=== PATIENT | male | born 1955 | race Caucasian/White ===

== ENCOUNTER 2023-08-03 12:57 | Emergency (ER) | payer MEDICARE, OTHER | END 2023-08-03 13:33 | disposition home or self-care (01) | LOC: ERS 12:57 | DX: I10 Essential (primary) hypertension (principal); E03.9 Hypothyroidism, unspecified; Z79.899 Other long term (current) drug therapy; Z87.891 Personal history of nicotine dependence | CPT/HCPCS: 99283 ==

== ENCOUNTER 2024-07-01 14:44 | Emergency (ER) | payer MEDICARE, OTHER ==
[2024-07-01 16:14] LABS: #Basophils 0.04 10x3/uL (0.0-0.2); %Basophils 0.6 % (0.0-1.0); %Eosinophils 1.4 % (0.0-10.0); %Lymphocytes 32.1 % (21.0-51.0); %Monocytes 8.9 % (0.0-10.0); %Neutrophils 56.7 % (42.0-75.0); Hematocrit 42.6 % (42.0-52.0); Hemoglobin 14.7 g/dL (14.0-18.0); Mean Corpuscular HGB CONC 34.5 g/dL (32.0-36.0); Mean Corpuscular Hemoglobin 34.3 pg (27.0-31.0); Mean Corpuscular Volume 99.5 fL (78.0-98.0); Mean Platelet Volume 8.8 fL (7.4-10.4); Platelet Count 158 10x3/uL (130-400); RBC Distribution Width 12.5 % (11.5-14.5); Red Blood Cell (RBC) Count 4.28 mill/uL (4.70-6.10)
[2024-07-01 16:29] LABS: Acetaminophen Less than 10 mcg/mL (Less than 10); Alcohol 299.5 mg/dL (Less than 10); Salicylate Less than 8.0 mg/dL (Less than 8.0)
[2024-07-01 16:30] LABS: ALT (SGPT) 39 U/L (8-55); AST (SGOT) 54 U/L (5-34); Alkaline Phosphatase 47 U/L (40-110); Anion Gap 16 mmol/L (10-20); BUN (Urea Nitrogen) 23 mg/dL (8.4-25.7); Bilirubin, Total 0.5 mg/dL (0.2-1.2); Calc. Creatinine Clearance 0 mL/min (70-130); Calcium 8.3 mg/dL (7.8-10.44); Carbon Dioxide 21 mmol/L (23-31); Chloride 103 mmol/L (98-107); Estimated GFR 76; Globulin 2.9 g/dL (2.4-3.5); Glucose 109 mg/dL (80-115); Potassium 4.2 mmol/L (3.5-5.1); Protein, Total 6.9 g/dL (5.8-8.1); Sodium 136 mmol/L (136-145)
[2024-07-01 16:33] LABS: Troponin I Less than 0.010 ng/mL (< 0.028)
[2024-07-01] MEDS ORDERED: chlordiazePOXIDE HCl 25 MG CAP ONE (16:42)
== END 2024-07-01 16:46 | disposition home or self-care (01) ==
LOC: ERS 14:44
DX: F10.980 Alcohol use, unspecified with alcohol-induced anxiety disorder (principal); Y90.8 Blood alcohol level of 240 mg/100 ml or more; R00.2 Palpitations; Z79.899 Other long term (current) drug therapy
CPT/HCPCS: 36415; 71045; 80053; 80307; 84443; 84484; 85025; 93005